=== PATIENT | female | born 1990 | race Caucasian/White ===

== ENCOUNTER 2017-08-16 21:50 | Emergency (ER) | payer OTHER ==
[~2017-08-16] VITALS: Ht 144.8 cm; Wt 57.2 kg
[2017-08-16 21:53] VITALS: BP 123/63
--- NOTE | 2017-08-16 21:58 | NUR ---
to lobby, a/w bryant torres noted
--- NOTE | 2017-08-16 22:45 | NUR ---
PT TAKEN TO [facility] Addendum: 08/16/17 at 2246 by LISA PT TAKEN TO OF4
--- NOTE | 2017-08-16 22:55 | NUR ---
27Y F BIB FAMILY REQUESTING medication refill for her pain , s/p leg surgery 4 months ago. norco 10/325 mg po. PT ALSO REGESTING KIRSTY TO BE REMOVED FROM LEFT LEG. PT DENIES ANY N/V/D, SOB, CP AT THE MOMENT.
--- NOTE | 2017-08-16 23:39 | NUR ---
Patient discharged with v/s stable. Written and verbal after care instructions given and explained. Patient alert, oriented and verbalized understanding of instructions. Ambulatory with steady gait. All questions addressed prior to discharge. ID band removed. Patient advised to follow up with PMD. Rx of NAPROXEN 500MG, NORCO 5/325MG given. Patient educated on indication of medication including possible reaction and side effects. Opportunity to ask questions provided and answered.
[2017-08-16 23:42] VITALS: BP 119/72
== END 2017-08-16 23:39 | disposition home or self-care (01) ==
LOC: MED 21:50
DX: G89.29 Other chronic pain (principal); M79.652 Pain in left thigh
CPT/HCPCS: 99283